=== PATIENT | male | born 1985 | race Caucasian/White ===

== ENCOUNTER 2022-01-06 08:48 | Emergency (ER) | payer OTHER | END 2022-01-06 10:50 | disposition other institution (70) | LOC: FER 08:48 | DX: S61.541A Puncture wound with foreign body of right wrist, initial encounter (principal); F17.210 Nicotine dependence, cigarettes, uncomplicated; Z88.5 Allergy status to narcotic agent; Z23 Encounter for immunization; W29.4XXA Contact with nail gun, initial encounter; Y92.89 Other specified places as the place of occurrence of the external cause; Y99.0 Civilian activity done for income or pay | CPT/HCPCS: 73100; 90471; 90715; J1170 ==